=== PATIENT | female | born 1950 | race Caucasian/White ===

== ENCOUNTER 2016-07-18 14:42 | Inpatient (IN) | payer OTHER ==
[~2016-07-18] VITALS: Ht 170.2 cm; Wt 76.2 kg
--- NOTE | 2016-07-18 15:29 | NUR ---
PT KENNEDY FROM HOME FOR VOMITING STATES SHE FELT GAS AND IN ABOUT 1.5 HOURS SHE BEGAN GETTING PAIN IN [facility] WHILE DRIVING. PT STATES SHE STOPPED AT HER BROTHERS HOUSE AND USED THE BATHROOM. PT TOOK ONE TUMS AND THEN SHE BEGAN VOMITING FOR ABOUT 1/2 HOUR. PT DENIES SOB OR CHEST PAIN. PT HAS A TRIPLE A THAT IS MONITORED EVERY 6 MONTHS THAT HAS NOT CHANGED IN YEARS. PT STATES SHE IS FEELING DIZZY. PT LAST BM WAS THIS AM
--- NOTE | 2016-07-18 15:29 | NUR ---
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
[2016-07-18 15:44] LABS: ABSOLUTE BASOPHIL COUNT 0.1 /CUMM (0.0-0.2); ABSOLUTE EOSINOPHIL COUNT 0.1 /CUMM (0.0-0.7); ABSOLUTE GRANULOCYTE CT 18.5 /CUMM (1.4-6.5); ABSOLUTE LYMPH COUNT 1.4 /CUMM (1.2-3.4); ABSOLUTE MONOCYTE COUNT 0.6 /CUMM (0.10-0.60); BASOPHIL % 0.5 % (0.0-2.0); EOSINOPHIL % 0.3 % (0-5); HEMATOCRIT 38.6 % (37-47); MEAN CORPUSCULAR HGB CONC 33.7 G/DL (33.0-37.0); MEAN CORPUSCULAR VOLUME 89.1 FL (81.0-99.0); MEAN PLATELET VOLUME 7.9 FL (7.4-10.4); PLATELET COUNT 259 /CUMM (130-400); RBC DISTRIBUTION WIDTH 13.3 % (11.5-14.5); RED BLOOD CELL CT 4.33 /CUMM (4.20-5.40); WHITE BLOOD CELL COUNT 20.6 /CUMM (4.8-10.8)
[2016-07-18 15:45] LABS: GRANULOCYTE % 89.7 % (42.2-75.2)
--- NOTE | 2016-07-18 15:50 | NUR ---
PT MEDICATED WITH ANTIVERT FOR DIZZINESS
--- NOTE | 2016-07-18 15:50 | NUR ---
BLOOD DRAWN AND SENT FROM TRIAGE FLUIDS INFUSING DIRECTED
--- NOTE | 2016-07-18 16:28 | ED GI/GU/ABDOMINAL COMPLAINT ---
History of Present Illness General Chief Complaint: Abdominal Pain/Flank Pain Stated Complaint: ABD PAIN/VOMITING Source: patient Exam Limitations: no limitations Vital Signs & Intake/Output Vital Signs & Intake/Output Vital Signs Date Time Temp Pulse Resp B/P Pulse O2 O2 Flow FiO2 Ox Delivery Rate 07/20 1125 80 120/78 07/20 0927 78 120/78 07/20 0630 97.9 61 18 126/70 96 Room Air 07/19 2157 98.1 77 20 112/72 97 Room Air 07/19 1418 98.1 82 20 118/60 96 Room Air ED Intake and Output 07/20 0000 07/19 1200 Intake Total 1300 625 Output Total Balance 1300 625 Intake, IV 625 Intake, Oral 1300 Number 1 Bowel Movements Patient 168 lb Weight Allergies Coded Allergies: NSAIDS (Non-Steroidal Anti-Inflamma (Severe, 07/19/16) Triage Note: PT BIBA FROM HOME FOR VOMITING STATES SHE FELT GAS AND IN ABOUT 1.5 HOURS SHE BEGAN GETTING PAIN IN [facility] WHILE DRIVING. PT STATES SHE STOPPED AT HER BROTHERS HOUSE AND USED THE BATHROOM. PT TOOK ONE TUMS AND THEN SHE BEGAN VOMITING FOR ABOUT 1/2 HOUR. PT DENIES SOB OR CHEST PAIN. PT HAS A TRIPLE A THAT IS MONITORED EVERY 6 MONTHS THAT HAS NOT CHANGED IN YEARS. PT STATES SHE IS FEELING DIZZY. Triage Nurses Notes Reviewed? yes ? n Is pt currently ? No Onset: Abrupt Duration: hour(s):, better, continues in ED Timing: recent history Quality/Severity: moderate, sharpness, severe Location: generalized abdomen Radiation: no radiation No Modifying Factors: none HPI: 65-year-old female comes into emergency room with complaints of nausea vomiting dizziness and abdominal pain. Patient reports that she is a meal this afternoon and about an hour and a half after she got associated nausea. She was having some gas pain. Patient reports she was walking around and then took a emma and then vomited. After vomiting patient became very dizzy with mild associated headache. Denies any chest pain or shortness of breath. (GUNNER LACEY) Reconcile Medications Albuterol Sulfate (Proair Hfa) 90 MCG HFA.AER.AD 1 PUF INH Q4-6 PRN PRN ASTHMA (Reported) Cholecalciferol (Vitamin D3) (Vitamin D) 1,000 UNIT TABLET 1 TAB PO BID SUPPLEMENT (Reported) Cyanocobalamin (Vitamin B-12) 1,000 MCG TABLET 1 TAB PO DAILY SUPPLEMENT ( Reported) Furosemide (Lasix) 20 MG TABLET 1 TAB PO QAM BP (Reported) Imatinib Mesylate (Gleevec) 100 MG TABLET 1 TAB PO BID CHEMO (Reported) Irbesartan (Avapro) 150 MG TABLET 1 TAB PO DAILY BP (Reported) Levothyroxine Sodium (Synthroid) 150 MCG TABLET 1 TAB PO DAILY AC THYROID ( Reported) Meclizine HCl 25 MG TABLET 25 MG PO TIDPRN PRN DIZZINESS Mometasone Furoate (Asmanex) 220 MCG (14 DOSES) AER.POW.BA 1 PUFF INH BID ASTHMA (Reported) Multivitamin (Multi-Day Vitamins) 1 EACH TABLET 1 TAB PO DAILY SUPPLEMENT ( Reported) Nifedipine (Nifedical XL) 30 MG TAB.ER.24 1 TAB PO QAM BP (Reported) Ondansetron HCl (Zofran) 4 MG TABLET 1 TAB PO Q6-8P NAUSEA/VOMITING Rosuvastatin Calcium (Crestor) 20 MG TABLET 1 TAB PO DAILY CHOLESTEROL ( Reported) Sennosides/Docusate Sodium (Senna Plus Tablet) 8.6 MG-50 MG TABLET 1 TAB PO BID PRN CONSTIPATION Triamterene (Dyrenium) 50 MG CAPSULE 1 CAP PO QAM BP (Reported) (MONICA VALENTINE,JEAN PIERRE) Past History Travel History Traveled to [place] past 21 day No Medical History Any Pertinent Medical History? see below for history Cardiovascular: hypertension, hyperlipidemia Respiratory: asthma Endocrine: Tani's thyroiditis, MEDABOLIC SYNDROME Cancer(s): ABD TUMOR Surgical History Surgical History: non-contributory Psychosocial History What is your primary language P[place] Tobacco Use: Never used ETOH Use: occasional use Illicit Drug Use: denies illicit drug use Family History Hx Contributory? No (GUNNER LACEY) Review of Systems Review of Systems Constitutional: Reports: no symptoms. EENTM: Reports: no symptoms. Respiratory: Reports: see HPI. Cardiovascular: Reports: no symptoms. GI: Reports: see HPI. Genitourinary: Reports: no symptoms. Musculoskeletal: Reports: no symptoms. Skin: Reports: no symptoms. Neurological/Psychological: Reports: no symptoms. Hematologic/Endocrine: Reports: no symptoms. Immunologic/Allergic: Reports: no symptoms. All Other Systems: Reviewed and Negative (GUNNER LACEY) Physical Exam Physical Exam General Appearance: well developed/nourished, alert, mild distress Head: atraumatic, normal appearance Eyes: Bilateral: normal appearance, EOMI. Ears, Nose, Throat, Mouth: hearing grossly normal, moist mucous membrane Neck: normal inspection, full range of motion Respiratory: normal breath sounds, no respiratory distress Cardiovascular: regular rate/rhythm Gastrointestinal: soft, tenderness Extremities: normal range of motion Neurologic/Psych: awake, alert, oriented x 3 Skin: intact, normal color Core Measures ACS in differential dx? No Severe Sepsis Present: No Septic Shock Present: No (GUNNER LACEY) Progress Differential Diagnosis: AAA, AMI, appendicitis, biliary colic, bowel obstruction , cholecystitis, diverticulitis, gastritis, hepatitis, hernia, hemorrhoids, ischemic bowel, inflamm bowel dis, intrauterine , kidney stone, Ebony -Davi tear, ovarian cyst, ovarian torsion, pancreatitis, PID/cervicitis, peptic ulcer, PUD/GERD, perforated viscous, SBO, threatened AB, UTI/pyelo Plan of Care: Orders Procedure Date/time Status MISTAKE 07/20 1003 Active PT Evaluate & Treat 07/20 0801 Active Discharge Patient 07/20 UNK Active MISTAKE 07/20 UNK Complete MISTAKE 07/19 1323 Active PT EVAL LOW COMPLEX 20 MIN 07/19 UNK Complete Neuromuscular Re-ed 07/19 UNK Complete Gait Training 07/19 UNK Complete Anticipated Discharge 07/19 UNK Active Current Medications Sig/Sophia Start time Last Medication Dose Stop Time Status Admin Losartan Potassium 50 MG DAILY 07/20 1000 AC (Cozaar) Enoxaparin Sodium 40 MG DAILY 07/19 1000 AC (Lovenox) Fluticasone 1 PUF BID 07/19 1000 AC Propionate (Flovent) Albuterol Sulfate 1 PUF Q4-6 PRN PRN 07/19 0415 AC (Ventolin) Meclizine HCl 25 MG TIDPRN PRN 07/19 0215 AC (Antivert) Acetaminophen 650 MG Q6P PRN 07/19 0115 AC (Tylenol) Ondansetron HCl 4 MG Q8P PRN 07/19 0115 AC (Zofran) Laboratory Tests 07/20/16 0635: CBC w Diff NO MAN DIFF REQ, RBC 4.15 L, MCV 88.9, MCH 30.0, RDW 13.1, MPV 8.3, Gran % 60.3, Lymphocytes % 23.9, Monocytes % 6.2, Eosinophils % 8.8 H, Basophils % 0.8, Absolute Granulocytes 4.0, Absolute Lymphocytes 1.6, Absolute Monocytes 0.4, Absolute Eosinophils 0.6, Absolute Basophils 0.1, PUBS MCHC 33.7 07/19/16 1655: CBC w Diff NO MAN DIFF REQ, RBC 3.46 L, MCV 88.8, MCH 29.5, RDW 13.4, MPV 8.0, Gran % 60.0, Lymphocytes % 25.9, Monocytes % 8.1, Eosinophils % 5.3 H, Basophils % 0.7, Absolute Granulocytes 4.1, Absolute Lymphocytes 1.8, Absolute Monocytes 0.6, Absolute Eosinophils 0.4, Absolute Basophils 0, PUBS MCHC 33.2 Diagnostic Imaging: Viewed by Me: CT Scan. Discussed w/RAD: CT Scan. Radiology Impression: SERVICE DATE: 07/18/16152 EXAM TYPE: CAT - CT ABD & PELVIS W/O IV CONTRAS EXAMINATION: CT ABDOMEN AND PELVIS WITHOUT CONTRAST CLINICAL INFORMATION: Dominant pain and vomiting. History of abdominal mass. On chemotherapy. COMPARISON: None. TECHNIQUE: Multidetector volumetric imaging was performed from the superior aspect of the liver through the pubic symphysis. Sagittal and coronal reformatted images were obtained on the technologist's workstation. DLP: 394.66 mGy-cm. FINDINGS: LUNG BASES: Nodular density right middle lobe measuring approximately 0.5 cm (series 2 image 1) Large lobulated heterogeneous low-attenuation mass appears to be arising out of the pelvis measuring approximately 25 x 18 x 20 cm in the transverse, AP and craniocaudal diameters. Mass demonstrates areas of low attenuation as well as higher than simple fluid as well as soft tissue attenuation. Free fluid also identified in the perihepatic/perisplenic regions as well as mid abdomen/pelvis. LIVER, GALLBLADDER, AND BILIARY TREE: Evaluate for leak identified noncontrast liver is mildly distended gallbladder possibly sludge. There is no gross biliary ductal dilatation. PANCREAS: Evaluation is limited without intravenous contrast. No gross abnormality. SPLEEN: Unremarkable ADRENAL GLANDS: Within normal limits KIDNEYS AND URETERS: No evidence of stones. No gross abnormality on the noncontrast images. BLADDER: Limited evaluation. GASTROINTESTINAL TRACT: Small hiatal hernia Limited evaluation of the abdomen and pelvis due to the presence of the mass. ABDOMINAL WALL: No significant hernia is appreciated. LYMPH NODES: No gross lymphadenopathy in the visualized regions. Evaluation is limited in the presence of mass. VASCULAR: Atherosclerotic disease. Atherosclerotic disease. PELVIC VISCERA: Very poor and limited evaluation. Large mass arising out of the pelvis raises the possibility of ovarian carcinoma. Clinical correlation is recommended. OSSEOUS STRUCTURES: No acute osseous abnormality. Scoliosis of the lumbar spine with rate 1 anterolisthesis L4-L5 level. Nonspecific sclerotic lesion noted in the left pubic ramus (series 602 image 45). Metastatic disease cannot be entirely excluded.. Status post left hip arthroplasty. IMPRESSION: 1. Large heterogeneous low-attenuation mass arising out of the pelvis measuring 25 x 18 x 20 cm. In comparison to earlier examinations is recommended. Differential possibility includes ovarian neoplasm. 2. Free fluid. 3. small amount of gallbladder sludge. No evidence of acute cholecystitis. 4. Small 0.5 cm nodule right middle lobe. Additional pulmonary nodules cannot be excluded. Follow-up CT chest recommended. 5. Sclerotic lesion left pubic bone. This may represent benign etiology. Metastatic disease cannot be entirely excluded. DICTATED BY: BECCA AMADOR MD DATE/TIME DICTATED:07/18/161724 LOOM INSPECTOR:DWIGHT DATE/TIME TRANSCRIBED:07/18/161724 CONFIDENTIAL, DO NOT COPY WITHOUT APPROPRIATE AUTHORIZATION. Initial ED EKG: sinus arrhythmia, rate 61, normal P waves, normal QRS is (GUNNER LACEY) Departure Departure Disposition: STILL A PATIENT Condition: Stable Clinical Impression Primary Impression: Abdominal pain Secondary Impressions: Leukocytosis, Vertigo Referrals: AMANUEL VALENTINE,JOVAN Baig (PCP/Family) Departure Forms: Customer Survey General Discharge Information (GUNNER LACEY) Departure Prescriptions: Current Visit Scripts Sennosides/Docusate Sodium (Senna Plus Tablet) 1 TAB PO BID PRN CONSTIPATION 30 Days Meclizine HCl 25 MG PO TIDPRN PRN DIZZINESS 10 Days Ondansetron HCl (Zofran) 1 TAB PO Q6-8P #15 TAB PA/BRAZING FURNACE OPERATOR Co-Sign Statement Statement: ED Attending supervision documentation- [X] I saw and evaluated the patient. I have also reviewed all the pertinent lab results and diagnostic results. I agree with the findings and the plan of care as documented in the PA's/BRAZING FURNACE OPERATOR's documentation. [X] I have reviewed the ED Record and agree with the PA's/BRAZING FURNACE OPERATOR's documentation. [] Additions or exceptions (if any) to the PAs/BRAZING FURNACE OPERATOR's note and plan are summarized below: [] (MONICA VALENTINE,JEAN PIERRE) Admission Note Spoke With: RICCI SALAS MD Documentation of Exam: Documentation of any treatments & extenuating circumstances including Concerns Regarding Discharge (functional status, medication knowledge or non-compliance, living conditions, etc.) that warrant an admission rather than observation: [ Persistent vertigo and elevated white blood cell count of 20,000. Persistent abdominal pain. Patient will require neurology consult as well as a surgical consult. Follow-up cultures.] Observation Note Rationale for Observation: My rational for observation is as follows . (CHAYO VALENTINE,ELOISA Baig) ED Attending Observation Initial Observation Note: I have seen and personally examined CALEB NOLASCO on 07/18/16 at 2012. I agree with the current emergency department documentation. The disposition (admission or discharge) is uncertain at this time, she needs a period of observation for the following reason(s): [PERISTENT VERTIGO, LEUKOCYTOSIS, ABD PAIN] The ED Nurse caring for this patient has been personally informed as to what the patient is being observed for. Observation Re-Evaluation: I have reevaluated CALEB NOLASCO on 07/18/16 at 2311. The physical findings that support the continued need to observe this patient include [patient is still having abdominal pain and persistent vertigo feelings. Patient white count is elevated 20,000. At this point the patient will be admitted to the medical service and obtain a surgical consultation.]. Observation Discharge: I have reevaluated CALEB NOLASCO on 07/18/16 at 2312. The patient is: (): Stable for discharge ([X]): To be admitted to Nursing Floor (): To be placed in Observation on Nursing Floor (): For transfer to other facility The patient was being observed for [persistent vertigo and abdominal pain] As a result of that observation, I have determined [ADMIT]. (CHAYO VALENTINE,ELOISA Baig) Sennosides/Docusate Sodium (Senna Plus Tablet) 1 TAB PO BID PRN CONSTIPATION 30 Days Meclizine HCl 25 MG PO TIDPRN PRN DIZZINESS 10 Days Ondansetron HCl (Zofran) 1 TAB PO Q6-8P #15 TAB (GUNNER LACEY) PA/BRAZING FURNACE OPERATOR Co-Sign Statement Statement: ED Attending supervision documentation- [X] I saw and evaluated the patient. I have also reviewed all the pertinent lab results and diagnostic results. I agree with the findings and the plan of care as documented in the PA's/BRAZING FURNACE OPERATOR's documentation. [X] I have reviewed the ED Record and agree with the PA's/BRAZING FURNACE OPERATOR's documentation. [] Additions or exceptions (if any) to the PAs/BRAZING FURNACE OPERATOR's note and plan are summarized below: [] (MONICA VALENTINE,JEAN PIERRE) Admission Note Spoke With: RICCI SALAS MD Documentation of Exam: Documentation of any treatments & extenuating circumstances including Concerns Regarding Discharge (functional status, medication knowledge or non-compliance, living conditions, etc.) that warrant an admission rather than observation: [ Persistent vertigo and elevated white blood cell count of 20,000. Persistent abdominal pain. Patient will require neurology consult as well as a surgical consult. Follow-up cultures.] Observation Note Rationale for Observation: My rational for observation is as follows . (CHAYO VALENTINE,ELOISA Baig) ED Attending Observation Initial Observation Note: I have seen and personally examined CALEB NOLASCO on 07/18/16 at 2012. I agree with the current emergency department documentation. The disposition (admission or discharge) is uncertain at this time, she needs a period of observation for the following reason(s): [PERISTENT VERTIGO, LEUKOCYTOSIS, ABD PAIN] The ED Nurse caring for this patient has been personally informed as to what the patient is being observed for. Observation Re-Evaluation: I have reevaluated CALEB NOLASCO on 07/18/16 at 2311. The physical findings that support the continued need to observe this patient include [patient is still having abdominal pain and persistent vertigo feelings. Patient white count is elevated 20,000. At this point the patient will be admitted to the medical service and obtain a surgical consultation.]. Observation Discharge: I have reevaluated CALEB NOLASCO on 07/18/16 at 2312. The patient is: (): Stable for discharge ([X]): To be admitted to Nursing Floor (): To be placed in Observation on Nursing Floor (): For transfer to other facility The patient was being observed for [persistent vertigo and abdominal pain] As a result of that observation, I have determined [ADMIT]. (CHAYO VALENTINE,ELOISA Baig) As a result of that observation, I have determined [ADMIT]. (ELOISA DOMINGO MD)
--- NOTE | 2016-07-18 16:32 | NUR ---
PT TO ROOM10 BY STRETCHER, NURSING CARE ASSUMED, AWAITING CAT SCAN.
[2016-07-18] MEDS ORDERED: CRESTOR20 M2 PO (16:51)
[2016-07-18] MEDS ORDERED: GLEEVEC PO (16:52)
[2016-07-18] MEDS ORDERED: ASMANEX220 MC1 INH (16:53)
[2016-07-18] MEDS ORDERED: SYNTHROID150 MCG PO (16:55)
[2016-07-18] MEDS ORDERED: PROAIR HFA8.5 GM INH (16:55)
[2016-07-18] MEDS ORDERED: NIFEDIPINE ER30 M1 PO (16:56)
[2016-07-18] MEDS ORDERED: NIFEDICAL XL30 M1 PO (16:56)
[2016-07-18] MEDS ORDERED: DYRENIUM50 MG PO (16:57)
[2016-07-18] MEDS ORDERED: AVAPRO150 M1 PO (16:57)
[2016-07-18] MEDS ORDERED: LASIX20 M1 PO (16:58)
[2016-07-18] MEDS ORDERED: MULTI-DAY VITA1 EACH PO (16:58)
[2016-07-18] MEDS ORDERED: CALCIUM +D & M1 EACH PO (16:58)
[2016-07-18] MEDS ORDERED: VITAMIN B-121000 MC3 PO (16:59)
[2016-07-18] MEDS ORDERED: VITAMIN D1000 UNIT PO (16:59)
--- NOTE | 2016-07-18 17:10 | NUR ---
[facility] AND [facility], AWAITING RESULTS.
--- NOTE | 2016-07-18 17:53 | CT SCAN REPORT ---
EXAMINATION: CT ABDOMEN AND PELVIS WITHOUT CONTRAST CLINICAL INFORMATION: Dominant pain and vomiting. History of abdominal mass. On chemotherapy. COMPARISON: None. TECHNIQUE: Multidetector volumetric imaging was performed from the superior aspect of the liver through the pubic symphysis. Sagittal and coronal reformatted images were obtained on the technologist's workstation. DLP: 394.66 mGy-cm. FINDINGS: LUNG BASES: Nodular density right middle lobe measuring approximately 0.5 cm (series 2 image 1) Large lobulated heterogeneous low-attenuation mass appears to be arising out of the pelvis measuring approximately 25 x 18 x 20 cm in the transverse, AP and craniocaudal diameters. Mass demonstrates areas of low attenuation as well as higher than simple fluid as well as soft tissue attenuation. Free fluid also identified in the perihepatic/perisplenic regions as well as mid abdomen/pelvis. LIVER, GALLBLADDER, AND BILIARY TREE: Evaluate for leak identified noncontrast liver is mildly distended gallbladder possibly sludge. There is no gross biliary ductal dilatation. PANCREAS: Evaluation is limited without intravenous contrast. No gross abnormality. SPLEEN: Unremarkable ADRENAL GLANDS: Within normal limits KIDNEYS AND URETERS: No evidence of stones. No gross abnormality on the noncontrast images. BLADDER: Limited evaluation. GASTROINTESTINAL TRACT: Small hiatal hernia Limited evaluation of the abdomen and pelvis due to the presence of the mass. ABDOMINAL WALL: No significant hernia is appreciated. LYMPH NODES: No gross lymphadenopathy in the visualized regions. Evaluation is limited in the presence of mass. VASCULAR: Atherosclerotic disease. Atherosclerotic disease. PELVIC VISCERA: Very poor and limited evaluation. Large mass arising out of the pelvis raises the possibility of ovarian carcinoma. Clinical correlation is recommended. OSSEOUS STRUCTURES: No acute osseous abnormality. Scoliosis of the lumbar spine with rate 1 anterolisthesis L4-L5 level. Nonspecific sclerotic lesion noted in the left pubic ramus (series 602 image 45). Metastatic disease cannot be entirely excluded.. Status post left hip arthroplasty. IMPRESSION: 1. Large heterogeneous low-attenuation mass arising out of the pelvis measuring 25 x 18 x 20 cm. In comparison to earlier examinations is recommended. Differential possibility includes ovarian neoplasm. 2. Free fluid. 3. small amount of gallbladder sludge. No evidence of acute cholecystitis. 4. Small 0.5 cm nodule right middle lobe. Additional pulmonary nodules cannot be excluded. Follow-up CT chest recommended. 5. Sclerotic lesion left pubic bone. This may represent benign etiology. Metastatic disease cannot be entirely excluded.
--- NOTE | 2016-07-18 17:57 | NUR ---
PT MEDICATED WITH VALIUM, 3 MG, IV PER EMAR. SHE IS RESTING COMFORTABLY, WITH FAMILY AT BEDSIDE AT THIS TIME. WILL CONTINUE TO MONITOR.
--- NOTE | 2016-07-18 18:46 | NUR ---
WILLIAM ANDERSON AND FARHANA MARTINO TO BEDSIDE TO DISCUSS TEST RESULTS AND POC.
--- NOTE | 2016-07-18 20:24 | NUR ---
PT TRANSPORTED TO RADIOLOGY AT THIS TIME.
--- NOTE | 2016-07-18 20:36 | RADIOLOGY REPORT ---
EXAMINATION: XR CHEST CLINICAL INFORMATION: Elevated WBC. COMPARISON: None. TECHNIQUE: PA and lateral views of the chest were obtained. FINDINGS: No significant abnormality is noted involving the heart, lungs, mediastinum, bony thorax, or soft tissues. IMPRESSION: Unremarkable examination.
--- NOTE | 2016-07-18 22:35 | CT SCAN REPORT ---
EXAMINATION: CT HEAD WITHOUT AND WITH CONTRAST CLINICAL INFORMATION: Concerning for metastatic disease. Mass in pelvis. Vertigo. COMPARISON: None. TECHNIQUE: Contiguous axial imaging was performed from the skull base to vertex before and after the administration of 95 mL of Optiray 320 intravenous contrast. DLP: 600.71 mGy-cm. FINDINGS: There is no evidence of acute intracranial hemorrhage or territorial infarction. No abnormal mass effect or midline shift is seen. Ellis to white matter differentiation is well preserved. No extra-axial fluid collections are identified. There is no abnormal enhancement. There is vascular wall calcification of the internal carotid artery vessels at the carotid artery siphon bilaterally. The ventricles are normal in size. There is no abnormal attenuation within the brain parenchyma. The osseous structures and soft tissues are normal. The mastoid air cells and visualized portions of the paranasal sinuses are well aerated. IMPRESSION: No acute intracranial pathology.
--- NOTE | 2016-07-18 22:50 | CT SCAN REPORT ---
EXAMINATION: CT ABDOMEN AND PELVIS WITH CONTRAST CLINICAL INFORMATION: HX OF INVESTIGATOR FRAUD TUMOR, ABD PAIN, R/O OBSTRUCTION Signs Symptoms: PAIN NOT PASSING GAS COMPARISON: CT scan abdomen pelvis 07/18/2016 4:51 PM TECHNIQUE: Multidetector volumetric imaging was performed of the abdomen and pelvis after the IV administration of 95 mL of Optiray 320 intravenous contrast. Oral contrast was given. Sagittal and coronal reformatted images were obtained on the technologist's workstation. DLP: 520.88 mGy-cm. FINDINGS: There is a large lobular mass again seen in the abdomen and pelvis. The mass is arising of the pelvis. Measures approximately 25 x 18 x 20 cm. The mass is solid with enhancing vessels in the mass. Favor a INVESTIGATOR FRAUD etiology since arising from the pelvis The mass displaces bowel loops. Does not cause obstruction of the bowel loops. LUNG BASES: The visualized lung bases are unremarkable. LIVER, GALLBLADDER, AND BILIARY TREE: The liver is normal in size, shape, and attenuation. No focal hepatic lesion or biliary ductal dilatation is present. The gallbladder is unremarkable with no evidence of radiopaque gallstones, gallbladder wall thickening, or obvious pericholecystic inflammatory changes. PANCREAS: Unremarkable. SPLEEN: Unremarkable. ADRENAL GLANDS: Unremarkable. KIDNEYS AND URETERS: The kidneys are normal in size, shape, and attenuation. No hydronephrosis, hydroureter, or calculi seen. No perinephric stranding. BLADDER: Unremarkable. GASTROINTESTINAL TRACT: No bowel obstruction. No dilated bowel loops. Bowel loops are displaced by the large mass in the abdomen and pelvis. No bowel wall thickening or edema. Moderate volume of stool in colon. The appendix is not identified. Small hiatal hernia. MESENTERY: Small volume of abdominal ascites. No inflammation. ABDOMINAL WALL: No significant hernia is appreciated. LYMPH NODES: Normal. VASCULAR: Atherosclerotic vascular wall calcifications of aorta and iliac arteries without aneurysm. PELVIC VISCERA: Large mass emanating from the pelvis superior to the bladder. 2 surgical clip seen in the left side of the pelvis. Correlate with surgical history. OSSEOUS STRUCTURES: Orthopedic hardware in the left hip, total hip replacement, this causes streak artifact to the lower pelvis. There is a levoscoliosis of lumbar spine. Sclerotic lesion in left superior pubic ramus measuring 7 mm. No cortical bone destruction or soft tissue mass. IMPRESSION: 1. Large mass in abdomen pelvis does displace bowel loops but does not cause obstruction. Favor INVESTIGATOR FRAUD origin. 2 surgical clips in the left side of pelvis. Correlate with surgical history. 2. Moderate volume of stool in colon. No bowel obstruction. 3. Small volume of abdominal ascites present.
--- NOTE | 2016-07-18 23:59 | History & Physical ---
YOUNG COLVIN MD 07/18/16 2391: General Information and HPI MD Statement: I have seen and personally examined CALEB NOLASCO and documented this H&P. The patient is a 65 year old F who presented with a patient stated chief complaint of [abdominal pain,vertigo,vomiting]. 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 Pt was in her normal state of healthy until noon today. For breakfast, she had coffee, along with home-made nigerien waffle (made with batter from the night before, refrigerated), and nutella. She was driving when she started having 11/ 10 sharp RLQ pain. She went to her brother's house in [place] (pt lives in [place]) because she thought bowel movement would help relieve her pain. She was not able to pass flatus or have a bowel movement, instead, was burping for 30 minutes. She took tums and vomited dark brown vomitus and had dry heaves for about 20 minutes. She then started to experience the room spinning around her. Her [id number] was there to make sure that she was safe and did not fall. She called ambulance and she was brought to the ED for further evaluation. She vomited again in the ambulance. Pt had a normal BM this morning. She has not been able to pass flatus since her abdominal pain started. No one ate the nigerien waffle other than herself. ROS: she feels warm, and has chills all day, her neck is sore because she has been keeping her head down, but no stiffness, and ROM intact. She reports sick contacts at work. Denies tinnitus, loss of hearing, recent URI or nasal congestion. Of note, pt had GIST diagnosed in 1997, was removed, and has been monitored with imaging every 6 months until 2008 or 2009. In spring 2015, she was having diaphoresis with 15 lbs unintentional weight loss. 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 She was started on gleevec 400 daily in March. However, she was having severe lower extremity edema along with heartburn, the gleevec was discontinued for 3 weeks after she was on it for 5-6 weeks. On Jun 23, she was restarted on imatinib (generic) on 200 mg daily. She follows up with Dr. Fuad Dawn in [place] every 2 weeks for CBC (last one checked Jul 05). Since she was started on gleevec, she has lost about 40 lbs, and has gone down 2 pant sizes. She was given meclizine in the ED. During our evaluation, her vertigo has improved although she still reports symptoms when she makes sudden head movements. When we evaluated her, she no longer complains of RLQ pain, instead, she is now complaining of LLQ discomfort, rated as 3 or 4 / 10. Allergies/Medications Allergies: Coded Allergies: NSAIDS (Non-Steroidal Anti-Inflamma (Severe, 07/19/16) Home Med list Albuterol Sulfate (Proair Hfa) 90 MCG HFA.AER.AD 1 PUF INH Q4-6 PRN PRN ASTHMA (Reported) Cholecalciferol (Vitamin D3) (Vitamin D) 1,000 UNIT TABLET 1 TAB PO BID SUPPLEMENT (Reported) Cyanocobalamin (Vitamin B-12) 1,000 MCG TABLET 1 TAB PO DAILY SUPPLEMENT ( Reported) Furosemide (Lasix) 20 MG TABLET 1 TAB PO QAM BP (Reported) Imatinib Mesylate (Gleevec) 100 MG TABLET 1 TAB PO BID CHEMO (Reported) Irbesartan (Avapro) 150 MG TABLET 1 TAB PO DAILY BP (Reported) Levothyroxine Sodium (Synthroid) 150 MCG TABLET 1 TAB PO DAILY AC THYROID ( Reported) Mometasone Furoate (Asmanex) 220 MCG (14 DOSES) AER.POW.BA 1 PUFF INH BID ASTHMA (Reported) Multivitamin (Multi-Day Vitamins) 1 EACH TABLET 1 TAB PO DAILY SUPPLEMENT ( Reported) Nifedipine (Nifedical XL) 30 MG TAB.ER.24 1 TAB PO QAM BP (Reported) Rosuvastatin Calcium (Crestor) 20 MG TABLET 1 TAB PO DAILY CHOLESTEROL ( Reported) Triamterene (Dyrenium) 50 MG CAPSULE 1 CAP PO QAM BP (Reported) Past History Travel History Traveled to [place] past 21 day No Medical History Cardiovascular: hypertension, hyperlipidemia, metabolic syndrome Respiratory: asthma Endocrine: Tani's thyroiditis, MEDABOLIC SYNDROME Cancer(s): ABD GIST TUMOR Surgical History Surgical History: hip replacement, supracervical hysterectomy Past Family/Social History Family History Relations & Conditions if any Relation not specified for: *No pertinent family history Psychosocial History Where do you live? Home Services at Home: None Smoking Status: Never Smoked ETOH Use: occasional use Illicit Drug Use: denies illicit drug use Functional Ability ADLs Independent: dressing, eating, toileting, bathing. Ambulation: independent IADLs Independent: shopping, housework, finances, food prep, telephone, transportation , medication admin. Review of Systems Review of Systems Constitutional: Reports: chills, fever. EENTM: Reports: see HPI. Cardiovascular: Denies: chest pain, palpitations. Respiratory: Denies: cough, short of breath. GI: Reports: see HPI, abdominal pain, bloating, nausea, vomiting. Genitourinary: Denies: dysuria. Exam & Diagnostic Data Last 24 Hrs of Vital Signs/I&O Vital Signs Date Time Temp Pulse Resp B/P Pulse O2 O2 Flow FiO2 Ox Delivery Rate 07/19 0243 98.0 72 20 120/70 97 Room Air 07/18 2211 98.2 74 16 128/60 98 Room Air 07/18 1935 97.8 75 16 112/68 96 Room Air 07/18 1742 96.3 72 18 119/60 99 Room Air 07/18 1632 Room Air 07/18 1529 97.7 75 18 102/64 99 Room Air Intake & Output 07/19 0800 07/19 0000 07/18 1600 Intake Total 1000 Output Total Balance 1000 Intake, IV 1000 Patient 77.111 kg Weight Physical Exam General Appearance Alert, Oriented X3, Cooperative, No Acute Distress Skin No Significant Lesion HEENT Atraumatic, PERRLA, EOMI, Mucous Membr. moist/pink Neck Supple, +2 Carotid Pulse wo Bruit, No LAD Cardiovascular Regular Rate, Normal S1, Normal S2, No Murmurs, Gallops, Rubs Lungs Clear to Auscultation, Normal Air Movement Abdomen Normal Bowel Sounds, Soft, tender over left lower quadrant and right lower quadrant Neurological Normal Speech, horizontal nystagmus, more severe towards the left Extremities trace edema, has chronic venous insufficiency Vascular Normal Pulses Last 24 Hrs of Labs/Osbaldo: Laboratory Tests 07/19/16 0143: Urine Color YEL, Urine Clarity CLEAR, Urine pH 6.5, Ur Specific [place] 1.015, Urine Protein NEG, Urine Ketones NEG, Urine Nitrite NEG, Urine Bilirubin NEG, Urine Urobilinogen 0.2, Ur Leukocyte Esterase NEG, Ur Microscopic EXAM NOT REQUIRED, Urine Hemoglobin NEG, Urine Glucose NEG 07/18/16 1536: Anion Gap 15, Estimated GFR > 60, BUN/Creatinine Ratio 42.9 H, Glucose 159 H, Calcium 9.8, Magnesium 1.6, Total Bilirubin 0.8, AST 19, ALT 16, Alkaline Phosphatase 66, Troponin I < 0.01, Total Protein 7.8, Albumin 4.4, Globulin 3.4, Albumin/Globulin Ratio 1.3, CBC w Diff MAN DIFF ORDERED, RBC 4.33, MCV 89.1, MCH 30.0, RDW 13.3, MPV 7.9, Gran % 89.7 H, Lymphocytes % 6.6 L, Monocytes % 2.9, Eosinophils % 0.3, Basophils % 0.5, Absolute Granulocytes 18.5 H, Segmented Neutrophils 90 H, Band Neutrophils 1, Absolute Lymphocytes 1.4, Lymphocytes 6 L, Monocytes 2, Absolute Monocytes 0.6, Absolute Eosinophils 0.1, Basophils 1, Absolute Basophils 0.1, Platelet Estimate VERIFIED BY SMEAR, Normocytic RBCs VERIFIED, Normochromic RBCs VERIFIED, PUBS MCHC 33.7, Fld Total RBCs Counted 100 Microbiology 07/19 0140 BLOOD: Blood Culture - RECD 07/19 0121 BLOOD: Blood Culture - RECD Diagnostic Data EKG Results SR 61 CXR Results IMPRESSION: Unremarkable examination. Other Results Head CT IMPRESSION: No acute intracranial pathology. CT abd/pelvis with IV contrast IMPRESSION: 1. Large mass in abdomen pelvis does displace bowel loops but does not cause obstruction. 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 2 surgical clips in the left side of pelvis. Correlate with surgical history. 2. Moderate volume of stool in colon. No bowel obstruction. 3. Small volume of abdominal ascites present. CT abd/pelvis wo IV contrast impression: 1. Large heterogeneous low-attenuation mass arising out of the pelvis measuring 25 x 18 x 20 cm. In comparison to earlier examinations is recommended. Differential possibility includes ovarian neoplasm. 2. Free fluid. 3. small amount of gallbladder sludge. No evidence of acute cholecystitis. 4. Small 0.5 cm nodule right middle lobe. Additional pulmonary nodules cannot be excluded. Follow-up CT chest recommended. 5. Sclerotic lesion left pubic bone. This may represent benign etiology. Metastatic disease cannot be entirely excluded. 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 Pt admitted to with the following problems addressed: # Abdominal pain,nausea, vomiting, unknown etilogy, hx of GIST, could be gastroenteritis vs obstruction - WBC 20.6 * Heme/onc consult in am () * zofran 4 mg q8p * Mag ox 400 daily * Follow BC X 2 * continue Imatinib 100 bid # Vertigo, most likely BPPV, horizontal nystagmus * Continue meclizine 25 mg TID prn # Hypokalemia - K 3.4 * 1 time kdur # Metabolic syndrome * Accucheck, consider novolog ss * continue Atorvastatin 80 mg daily * continue Nifedipine 30 mg qam # Hypothyroidism * Continue levothyroxine 150 mcg # Continue home meds * Vit B12 * Mometasone * Albuterol # Home meds on hold * Lasix 20 mg daily * Irbesartan 150 mg daily * Triamterene 50 mg qam * Ca+D * Vit D3 Diet: Heart healthy Fluids: D5NS 125ml/hr DVT ppx: mech and pharm (lovenox) FULL CODE As Ranked By This Provider Problem List: 1. Abdominal pain 2. Vertigo Core Measures/Miscellaneous Acute Coronary Syndrome ACS Diagnosis: No Cerebrovascular Accident CVA/TIA Diagnosis: No Congestive Heart Failure CHF Diagnosis: No Venous Thromboembolism VTE Risk Factors: Acute medical illness, Age > 40 VTE Prophylaxis Ordered Inpt: Mech & Pharm No Mech VTE prophylaxis d/t: No contraindications No VTE Pharm Prophylaxis d/t: No contraindications VTE Diagnosis: No VTE Type: NONE VTE Confirmed by (Test): NONE Severe Sepsis Severe Sepsis Present: No Septic Shock Septic Shock Present: No Miscellaneous Documentation Attending Case Discussed With: JOSUE VALENTINE,RICCI Primary Care Physician: JOVAN VITAL MD Patient sees these Specialists Dr Fuad Dawn (GIST) Dr Barnhart (vascular) Level of Patient Care: General Medicine WOLF WOO 07/19/16 0348: Resident Review Statement Resident Statement: examined this patient, discussed with network intern, agreed with network intern, reviewed EMR data (avail), reviewed images, amended to note Other Findings: This is 65-year-old with past medical history of GIST on imatinib, metabolic syndrome, asthma, hypothyroidism, presented to the emergency department via EMS for chief complain of abdominal pain, nausea, vomiting, and vertigo. Patient stated that all the symptoms started today when she was trying to have a bowel movement due to the right lower quadrant abdominal pain, she experienced the bathroom was spinning around her and she feels nauseated and she vomited. She reports 2-3 episodes of vomiting, she stated that she had 1 large bowel movement. She reports that her brother holds her head and that slightly improve her vertigo. She denied any tinnitus, loss of hearing, recent URI or nasal congestion. Physical examination, lab and imaging as above. Problem list: -Leukocytosis that could be due to nausea, vomiting -Vertigo that could be most likely due to benign positional vertigo -Abdominal pain, that could be secondary to nausea and vomiting due to the vertigo, or the underlying GIST tumor. -Hypokalemia, hypomagnesemia secondary to nausea, vomiting -Dehydration was secondary to nausea, vomiting and large bowel movement. Plan: -Admit patient to general medicine floor -Vitals every shift, I and O's -Hold off antibiotic for now -Start the patient on D5 normal saline at 125 mL per hour -Start the patient on meclizine 25MG 3 times a day when necessary for dizziness -Start the patient on IV Zofran for nausea, vomiting -Potassium and magnesium supplement -We'll hold off on medication of Lasix,DYRENIUM will start tomorrow morning. -TRC nebs as needed -We'll continue home medication including imatinib -Oncology consultation, obtain medical records from PCP -Physical therapy consultation -Carbohydrate consistent diet, Accu-Chek every 6 -Pain pathway -DVT prophylaxis: subcutaneous Lovenox -Full code. JOSUE VALENTINE, [facility] 07/19/16 0557: Attending MD Review Statement Attending Statement Attending MD Statement: examined this patient, discuss w/resident/PA/LABORER WHARF, agreed w/resident/PA/LABORER WHARF Attending Assessment/Plan: 65 yo F with h/o GIST (diagnosed 1997 s/p tumor removal, recurrence in 2016 was on Gleevec 400 mg adverse reaction - now on generic Imatinib 200 mg), metabolic syndrome, AAA, chronic venous insufficiency, asthma, hypothyroidism, is here with lower abdominal pain followed by intractable nausea and vomiting after eating home made waffle early this AM. This was followed by vertigo, room spinning sensation worse with head movement. Denies vision changes, headache, recent URI symptoms or hearing loss. She follows Dr. Fuad Dawn (Oncologist). VSS. Abd: b/l lower quadrant tenderness, Neuro exam nonfocal, except for horizontal nystagmus, did not assess gait. Labs: WBC 20.6, K 3.4, BUN 30, trop neg, UA neg, EKG sinus arrhythmia. CXR/Head CT neg. CT abd/pelvis large mass arising out of pelvis ?GIST tumor, no bowel obstruction, small GB sludge, no cholecystitis, RML lung nodule and left pubic bone sclerotic lesion ?mets. 1. Intractable nausea, vomiting - possible gastroenteritis and vertigo ?BPPV/ orthostatic hypotension in this patient with GIST on Imatinib. Check orthostats, initiate clear liquid diet, advance as tolerated, anti-emetics, IV fluids, continue meclizine PRN, PT eval when able, Consult Oncology as patient is on active chemoRx. IF vertigo does not improve, consider Neuro consult. 2. Leukocytosis likely reactive. UA and CXR neg. No obvious skin cellulitic changes. GB sludge, no cholecystitis, LFTs are normal. Consider RUQ ultrasound if LFTs increase. 3. Electrolyte abnormalities in the setting of nausea/vomiting. Replete. Hold lasix, irbesartan, triamterene (dyrenium) and nifedipine for now. Plan to restart nifedipine and slowly add on others. DVT ppx Lovenox. Full code.
--- NOTE | 2016-07-19 01:32 | NUR ---
PT AMBULATED TO BATHROOM FOR URINE SAMPLE
--- NOTE | 2016-07-19 01:44 | NUR ---
PT MEDICATED WITH D5 NS @125MLS/HR PER EMAR
--- NOTE | 2016-07-19 01:44 | NUR ---
CULTURES SENT BY THIS RN
--- NOTE | 2016-07-19 01:45 | NUR ---
URINE TRIO SENT TO LAB BY AGUS KING
--- NOTE | 2016-07-19 01:47 | NUR ---
Emergency Dept [facility] Admit Note: To be admitted to [facility] by DR. SALAS with INTRACTABLE VERTIGO, LEUKOCYTOSIS as the diagnosis, to [id number]. Nursing Boat Painter and admitting notified 07/19/16 at 2030
--- NOTE | 2016-07-19 01:59 | NUR ---
REPORT GIVEN TO AGUS BENDER
[2016-07-19 02:43] VITALS: BP 120/70
--- NOTE | 2016-07-19 05:37 | Admission Certification ---
Admission Certification Certification Statement - As attending physician, I certify that at the time of - admission, based on clinical presentation, severity of - symptoms, need for further diagnostic testing and - therapeutic interventions, and risk of adverse outcomes - without in-hospital treatment, in my clinical assessment, - this patient requires an acute hospital stay for a minimum - of two nights or longer. I have also considered psychsocial - factors such as support system, advanced age, financial - issues, cognitive issues, and failed out-patient treatments, - past re-admission history, safety of patient, and lack of - compliance as applicable. Specific rationale supporting this admission is: Intractable vertigo, nausea and vomiting. Leukocytosis of unclear etiology.
[2016-07-19 06:38] VITALS: BP 116/72
[2016-07-19 08:18] LABS: ABSOLUTE EOSINOPHIL COUNT 0.1 /CUMM (0.0-0.7); ABSOLUTE GRANULOCYTE CT 5.8 /CUMM (1.4-6.5); ABSOLUTE LYMPH COUNT 1.5 /CUMM (1.2-3.4); ABSOLUTE MONOCYTE COUNT 0.7 /CUMM (0.10-0.60); EOSINOPHIL % 0.9 % (0-5)
[2016-07-19 08:30] LABS: ABSOLUTE BASOPHIL COUNT 0 /CUMM (0.0-0.2); BASOPHIL % 0.4 % (0.0-2.0); GRANULOCYTE % 71.8 % (42.2-75.2); MEAN CORPUSCULAR HGB CONC 33.9 G/DL (33.0-37.0); MEAN CORPUSCULAR VOLUME 88.5 FL (81.0-99.0); MEAN PLATELET VOLUME 8.1 FL (7.4-10.4); PLATELET COUNT 184 /CUMM (130-400); RBC DISTRIBUTION WIDTH 13.5 % (11.5-14.5); RED BLOOD CELL CT 3.28 /CUMM (4.20-5.40)
[2016-07-19 08:44] LABS: HEMATOCRIT 29.1 % (37-47); WHITE BLOOD CELL COUNT 8.1 /CUMM (4.8-10.8)
--- NOTE | 2016-07-19 08:45 | PN- Housestaff ---
See Addendum Subjective Follow-up For: Vertigo Dehydration Nausea and vomiting Abdominal pain Subjective: Patient seen and examined at bedside. She reports feeling much better with resolution of nause, vomiting, and vertigo. Patient was very hungry and ate a big portion of breakfast without any issues. She still has mild diffuse abdominal pain (3 out of 10) but much better than yesterday (11 out of 10). No other complaints. She has not had a bowel movement since yest morning. Drank prune juice and took Senna. Review of Systems Constitutional: Reports: see HPI. Objective Last 24 Hrs of Vital Signs/I&O Vital Signs Date Time Temp Pulse Resp B/P Pulse O2 O2 Flow FiO2 Ox Delivery Rate 07/19 1101 Room Air 07/19 1031 80 120/78 07/19 0638 98.1 70 20 116/72 97 Room Air 07/19 0243 98.0 72 20 120/70 97 Room Air 07/18 2211 98.2 74 16 128/60 98 Room Air 07/18 1935 97.8 75 16 112/68 96 Room Air 07/18 1742 96.3 72 18 119/60 99 Room Air 07/18 1632 Room Air 07/18 1529 97.7 75 18 102/64 99 Room Air Intake & Output 07/19 1600 07/19 0800 07/19 0000 Intake Total 625 1000 Output Total Balance 625 1000 Intake, IV 625 1000 Patient 76.204 kg Weight Physical Exam General Appearance: Alert, Oriented X3, Cooperative, No Acute Distress Other Physical Findings: Skin No Significant Lesion HEENT Atraumatic, PERRLA, EOMI, Mucous Membr. moist/pink Neck Supple, +2 Carotid Pulse wo Bruit, No LAD Cardiovascular Regular Rate, Normal S1, Normal S2, No Murmurs, Gallops, Rubs Lungs Clear to Auscultation, Normal Air Movement Abdomen Normal Bowel Sounds, Soft, tender over left lower quadrant and right lower quadrant Neurological Normal Speech, horizontal nystagmus, more severe towards the left Extremities trace edema, has chronic venous insufficiency Vascular Normal Pulses Current Medications: Current Medications Sig/Sophia Start time Last Medication Dose Route Stop Time Status Admin Acetaminophen 650 MG Q6P PRN 07/19 0115 AC PO Albuterol Sulfate 1 PUF Q4-6 PRN PRN 07/19 0415 AC INH Atorvastatin Calcium 80 MG 1700 07/19 1700 AC PO Cyanocobalamin 1,000 MCG DAILY 07/19 1000 AC PO Dextrose/Sodium 1,000 ML Q8H 07/19 0115 DC 07/19 Chloride IV 1038 Diazepam 0 .STK-MED ONE 07/18 1746 DC .ROUTE Diazepam 3 MG ONCE ONE 07/18 1730 DC 07/18 IV 07/18 1731 1756 Enoxaparin Sodium 40 MG DAILY 07/19 1000 AC SC Fluticasone 1 PUF BID 07/19 1000 AC Propionate INH Imatinib Mesylate 200 MG AT BEDTIME 07/19 2200 AC PO Levothyroxine Sodium 0.15 MG DAILY AC 07/19 0700 AC 07/19 PO 0505 Losartan Potassium 50 MG DAILY 07/20 1000 AC PO Losartan Potassium 50 MG DAILY 07/19 1000 CAN PO Magnesium Oxide 400 MG DAILY 07/19 0200 AC 07/19 PO 0505 Meclizine HCl 25 MG TIDPRN PRN 07/19 0215 AC PO Meclizine HCl 25 MG TIDPRN PRN 07/19 0115 DC PO Meclizine HCl 0 .STK-MED ONE 07/18 2347 DC PO Meclizine HCl 25 MG ONCE ONE 07/18 2315 DC 07/18 PO 07/18 2316 2353 Meclizine HCl 0 .STK-MED ONE 07/18 1542 DC PO Meclizine HCl 25 MG ONCE ONE 07/18 1530 DC 07/18 PO 07/18 1531 1549 Nifedipine 30 MG QAM 07/19 1000 AC 07/19 PO 1031 Ondansetron HCl 4 MG Q8P PRN 07/19 0115 AC IV Ondansetron HCl 4 MG ONCE ONE 07/18 1600 DC 07/18 IV 07/18 1601 1549 Ondansetron HCl 0 .STK-MED ONE 07/18 1553 DC .ROUTE Potassium Chloride 40 MEQ ONCE ONE 07/19 0145 DC 07/19 PO 07/19 0146 0505 Senna/Docusate Sodium 1 TAB BID PRN 07/19 0845 AC 07/19 PO 1034 Sodium Chloride 1,000 ML BOLUS ONE 07/18 2315 DC 07/18 IV 07/19 0014 2353 Sodium Chloride 1,000 ML ONCE ONE 07/18 1530 DC 07/18 IV 07/18 2209 1549 Last 24 Hrs of Lab/Osbaldo Results Last 24 Hrs of Labs/Mics: Laboratory Tests 07/19/16 0700: Anion Gap 10, Estimated GFR > 60, BUN/Creatinine Ratio 31.7 H, Magnesium 1.7, TSH 0.332, Free T4 1.39, CBC w Diff NO MAN DIFF REQ, RBC 3.28 L, MCV 88.5, MCH 30.0, RDW 13.5, MPV 8.1, Gran % 71.8, Lymphocytes % 18.8 L, Monocytes % 8.1, Eosinophils % 0.9, Basophils % 0.4, Absolute Granulocytes 5.8, Absolute Lymphocytes 1.5, Absolute Monocytes 0.7 H, Absolute Eosinophils 0.1, Absolute Basophils 0, PUBS MCHC 33.9 07/19/16 0143: Urine Color YEL, Urine Clarity CLEAR, Urine pH 6.5, Ur Specific [place] 1.015, Urine Protein NEG, Urine Ketones NEG, Urine Nitrite NEG, Urine Bilirubin NEG, Urine Urobilinogen 0.2, Ur Leukocyte Esterase NEG, Ur Microscopic EXAM NOT REQUIRED, Urine Hemoglobin NEG, Urine Glucose NEG 07/18/16 1536: Hemoglobin A1c Pending 07/18/16 1536: Anion Gap 15, Estimated GFR > 60, BUN/Creatinine Ratio 42.9 H, Glucose 159 H, Calcium 9.8, Magnesium 1.6, Total Bilirubin 0.8, AST 19, ALT 16, Alkaline Phosphatase 66, Troponin I < 0.01, Total Protein 7.8, Albumin 4.4, Globulin 3.4, Albumin/Globulin Ratio 1.3, CBC w Diff MAN DIFF ORDERED, RBC 4.33, MCV 89.1, MCH 30.0, RDW 13.3, MPV 7.9, Gran % 89.7 H, Lymphocytes % 6.6 L, Monocytes % 2.9, Eosinophils % 0.3, Basophils % 0.5, Absolute Granulocytes 18.5 H, Segmented Neutrophils 90 H, Band Neutrophils 1, Absolute Lymphocytes 1.4, Lymphocytes 6 L, Monocytes 2, Absolute Monocytes 0.6, Absolute Eosinophils 0.1, Basophils 1, Absolute Basophils 0.1, Platelet Estimate VERIFIED BY SMEAR, Normocytic RBCs VERIFIED, Normochromic RBCs VERIFIED, PUBS MCHC 33.7, Fld Total RBCs Counted 100 Microbiology 07/19 014 BLOOD: Blood Culture - RECD 07/19 120 BLOOD: Blood Culture - RECD Assessment/Plan Assessment: 65-year-old with 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 # Abdominal pain,nausea, vomiting, Most likely 2/2 viral gastroenteritis and constipation. CT abdomen showed moderate volume of stool in colon but no obstruction. Also there is an expected finding of a large heterogeneous low-attenuation mass arising out of the pelvis which is most likely her previous GIST given the history provided by the patient. * Symptomatic control with Antivert and Zofran as needed * Check BEP, replete electrolytes as needed * Cont Mag ox 400 daily # Vertigo Most likely 2/2 dehydration vs. BPPV in the setting of horizontal nystagmus. Patient received adequate IV hydration after which her vertigo has resolved. * Continue meclizine 25 mg TID PRN * Discontinue IVF as patient is now tolerating PO intake well # Leukocytosis Most likely reactive to gastroenteritis. Repeat CBC this morning shows a normal white count. * Follow BC X 2 - FGTD * Check CBC, trend WBC * Vitals per protocol, watch for signs of infection # History of GIST * Continue Gleevac 100mg PO BID * Oncology consulted, appreciate recs # Metabolic syndrome (obesity, HTN, HLD, pre-diabetes) * Accucehcks with Novolog SSI * Continue Atorvastatin 80 mg daily * Continue Nifedipine 30 mg qam * Holding home meds losartan 50mg PO daily and Lasix 20mg PO daily # Hypothyroidism * Continue levothyroxine 150 mcg # Continue home meds * Vit B12 * Mometasone * Albuterol # Home meds on hold * Lasix 20 mg daily * losartan 50mg PO daily * Irbesartan 150 mg daily * Triamterene 50 mg qam * Ca+D * Vit D3 Diet: Regular diet (patient informed about the need for diabetic diet but would like to control her own diet) DVT ppx: mech and pharm (lovenox) FULL CODE Problem List: 1. Abdominal pain 2. Vertigo 3. Leukocytosis 4. GIST, malignant 5. No pertinent family history Pain Ratin Pain Location: Diffuse abdomen Pain Goal: Remain pain free Pain Plan: Mild pain pathway Tomorrow's Labs & Rationales: CBC to monitor H/H in the setting of anemia
--- NOTE | 2016-07-19 09:14 | Cons- Oncology ---
General Information and HPI Consulting Request Date of Consult: 07/19/16 Requested By: MELISA SIFUENTES M.D Reason for Consult: GIST Source of Information: patient, old records Exam Limitations: no limitations History of Present Illness: Ms. 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 She states she was feeling well until yesterday afternoon when she started having right lower quadrant abdominal pain. She thought she was constipated but was not able to move her bowel. She started having nausea and vomiting. She had emesis for about 20 times. Afterward, she started having vertigo sensation with the room spinning around. This did not resolve after 20 minutes. EMS was called. She was seen in the ED at [facility]. She was started on IVF, given meclizine, and had CT scan done. CT demonstrated a pelvic mass of 25 cm. This morning, she is comfortable. Abdominal pain is improved. She has not gotten up to see if she still has the vertigo sensation. Of note, she sees Dr. Betzaida Estrada for her GIST management. She is currently getting imatinib 200 mg daily. This was dose reduced due to edema and gastritis. She has tolerated this better than prior. Allergies/Medications Allergies: Coded Allergies: NSAIDS (Non-Steroidal Anti-Inflamma (Severe, 07/19/16) Home Med List: Albuterol Sulfate (Proair Hfa) 90 MCG HFA.AER.AD 1 PUF INH Q4-6 PRN PRN ASTHMA (Reported) Cholecalciferol (Vitamin D3) (Vitamin D) 1,000 UNIT TABLET 1 TAB PO BID SUPPLEMENT (Reported) Cyanocobalamin (Vitamin B-12) 1,000 MCG TABLET 1 TAB PO DAILY SUPPLEMENT ( Reported) Furosemide (Lasix) 20 MG TABLET 1 TAB PO QAM BP (Reported) Imatinib Mesylate (Gleevec) 100 MG TABLET 1 TAB PO BID CHEMO (Reported) Irbesartan (Avapro) 150 MG TABLET 1 TAB PO DAILY BP (Reported) Levothyroxine Sodium (Synthroid) 150 MCG TABLET 1 TAB PO DAILY AC THYROID ( Reported) Mometasone Furoate (Asmanex) 220 MCG (14 DOSES) AER.POW.BA 1 PUFF INH BID ASTHMA (Reported) Multivitamin (Multi-Day Vitamins) 1 EACH TABLET 1 TAB PO DAILY SUPPLEMENT ( Reported) Nifedipine (Nifedical XL) 30 MG TAB.ER.24 1 TAB PO QAM BP (Reported) Rosuvastatin Calcium (Crestor) 20 MG TABLET 1 TAB PO DAILY CHOLESTEROL ( Reported) Triamterene (Dyrenium) 50 MG CAPSULE 1 CAP PO QAM BP (Reported) Current Medications: Current Medications Sig/Sophia Start time Last Medication Dose Route Stop Time Status Admin Acetaminophen 650 MG Q6P PRN 07/19 0115 AC PO Albuterol Sulfate 1 PUF Q4-6 PRN PRN 07/19 0415 AC INH Atorvastatin Calcium 80 MG 1700 07/19 1700 AC PO Cyanocobalamin 1,000 MCG DAILY 07/19 1000 AC PO Dextrose/Sodium 1,000 ML Q8H 07/19 0115 AC 07/19 Chloride IV 0144 Diazepam 0 .STK-MED ONE 07/18 1746 DC .ROUTE Diazepam 3 MG ONCE ONE 07/18 1730 DC 07/18 IV 07/18 1731 1756 Enoxaparin Sodium 40 MG DAILY 07/19 1000 AC SC Fluticasone 1 PUF BID 07/19 1000 AC Propionate INH Imatinib Mesylate 200 MG AT BEDTIME 07/19 2200 AC PO Levothyroxine Sodium 0.15 MG DAILY AC 07/19 0700 AC 07/19 PO 0505 Losartan Potassium 50 MG DAILY 07/19 1000 AC PO Magnesium Oxide 400 MG DAILY 07/19 0200 AC 07/19 PO 0505 Meclizine HCl 25 MG TIDPRN PRN 07/19 0215 AC PO Meclizine HCl 25 MG TIDPRN PRN 07/19 0115 DC PO Meclizine HCl 0 .STK-MED ONE 07/18 2347 DC PO Meclizine HCl 25 MG ONCE ONE 07/18 2315 DC 07/18 PO 07/18 2316 2353 Meclizine HCl 0 .STK-MED ONE 07/18 1542 DC PO Meclizine HCl 25 MG ONCE ONE 07/18 1530 DC 07/18 PO 07/18 1531 1549 Nifedipine 30 MG QAM 07/19 1000 AC PO Ondansetron HCl 4 MG Q8P PRN 07/19 0115 AC IV Ondansetron HCl 4 MG ONCE ONE 07/18 1600 DC 07/18 IV 07/18 1601 1549 Ondansetron HCl 0 .STK-MED ONE 07/18 1553 DC .ROUTE Potassium Chloride 40 MEQ ONCE ONE 07/19 0145 DC 07/19 PO 07/19 0146 0505 Sodium Chloride 1,000 ML BOLUS ONE 07/18 2315 DC 07/18 IV 07/19 0014 2353 Sodium Chloride 1,000 ML ONCE ONE 07/18 1530 DC 07/18 IV 07/18 2209 1549 Review of Systems Review of Systems Constitutional: Denies: chills, fever. EENTM: Denies: visual changes. Cardiovascular: Reports: edema. Denies: chest pain, palpitations. Respiratory: Denies: short of breath. GI: Reports: abdominal pain, constipation, nausea, vomiting. Denies: bloody stool. Genitourinary: Denies: dysuria, frequency, hematuria. Musculoskeletal: Denies: back pain, joint pain. Skin: Denies: rash. Neurological/Psychological: Reports: other (vertigo sensation). Denies: anxiety, confusion. Hematologic/Endocrine: Denies: bleeding. Immunologic/Allergic: Denies: lymphadenopathy. 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 Home Services at Home: None Smoking Status: Never Smoked ETOH Use: occasional use Illicit Drug Use: denies illicit drug use Functional Ability ADLs Independent: dressing, eating, toileting, bathing. Ambulation: independent IADLs Independent: shopping, housework, finances, food prep, telephone, transportation , medication admin. Exam & Diagnostic Data Vital Signs and I&O Vital Signs Date Time Temp Pulse Resp B/P Pulse O2 O2 Flow FiO2 Ox Delivery Rate 07/19 0638 98.1 70 20 116/72 97 Room Air 07/19 0243 98.0 72 20 120/70 97 Room Air 07/18 2211 98.2 74 16 128/60 98 Room Air 07/18 1935 97.8 75 16 112/68 96 Room Air 07/18 1742 96.3 72 18 119/60 99 Room Air 07/18 1632 Room Air 07/18 1529 97.7 75 18 102/64 99 Room Air Intake & Output 07/19 1600 07/19 0800 07/19 0000 Intake Total 625 1000 Output Total Balance 625 1000 Intake, IV 625 1000 Patient 76.204 kg Weight Physical Exam General Appearance: alert, awake, comfortable Head: atraumatic, normal appearance Ears, Nose, Throat: normal pharynx Neck: normal inspection, supple Respiratory: normal breath sounds, chest non-tender, no respiratory distress Cardiovascular: regular rate/rhythm Gastrointestinal: normal bowel sounds, soft, tenderness (mild d) Extremities: normal inspection Neurologic/Psych: awake, alert, oriented x 3 Lymphatic: no adenopathy Last 48 Hours of Lab Results: Laboratory Tests 07/19 07/19 0700 0143 Chemistry Sodium (137 - 145 mmol/L) 143 Potassium (3.5 - 5.1 mmol/L) 3.9 Chloride (98 - 107 mmol/L) 105 Carbon Dioxide (22 - 30 mmol/L) 28 Anion Gap (5 - 16) 10 BUN (7 - 17 mg/dL) 19 H Creatinine (0.5 - 1.0 mg/dL) 0.6 Estimated GFR (>60 ml/min) > 60 BUN/Creatinine Ratio (7 - 25 %) 31.7 H Magnesium (1.6 - 2.3 mg/dL) 1.7 TSH (0.270 - 4.200 uIU/mL) Pending Free T4 (0.78 - 2.44 ng/dL) Pending Hematology CBC w Diff NO MAN DIFF REQ WBC (4.8 - 10.8 /CUMM) 8.1 RBC (4.20 - 5.40 /CUMM) 3.28 L Hgb (12.0 - 16.0 G/DL) 9.8 L Hct (37 - 47 %) 29.1 L MCV (81.0 - 99.0 FL) 88.5 MCH (27.0 - 31.0 PG) 30.0 RDW (11.5 - 14.5 %) 13.5 Plt Count (130 - 400 /CUMM) 184 MPV (7.4 - 10.4 FL) 8.1 Gran % (42.2 - 75.2 %) 71.8 Lymphocytes % (20.5 - 51.1 %) 18.8 L Monocytes % (1.7 - 9.3 %) 8.1 Eosinophils % (0 - 5 %) 0.9 Basophils % (0.0 - 2.0 %) 0.4 Absolute Granulocytes (1.4 - 6.5 /CUMM) 5.8 Absolute Lymphocytes (1.2 - 3.4 /CUMM) 1.5 Absolute Monocytes (0.10 - 0.60 /CUMM) 0.7 H Absolute Eosinophils (0.0 - 0.7 /CUMM) 0.1 Absolute Basophils (0.0 - 0.2 /CUMM) 0 PUBS MCHC (33.0 - 37.0 G/DL) 33.9 Urines Urine Color (YEL,AMB,STR) YEL Urine Clarity (CLEAR) CLEAR Urine pH (5.0 - 8.0) 6.5 Ur Specific [place] (1.001 - 1.035) 1.015 Urine Protein (NEG,<30 MG/DL) NEG Urine Ketones (NEG) NEG Urine Nitrite (NEG) NEG Urine Bilirubin (NEG) NEG Urine Urobilinogen (0.1 - 1.0 EU/dl) 0.2 Ur Leukocyte Esterase (NEG) NEG Ur Microscopic EXAM NOT REQUIRED Urine Hemoglobin (NEG) NEG Urine Glucose (N MG/DL) NEG 07/18 07/18 1536 1536 Chemistry Sodium (137 - 145 mmol/L) 145 Potassium (3.5 - 5.1 mmol/L) 3.4 L Chloride (98 - 107 mmol/L) 102 Carbon Dioxide (22 - 30 mmol/L) 28 Anion Gap (5 - 16) 15 BUN (7 - 17 mg/dL) 30 H Creatinine (0.5 - 1.0 mg/dL) 0.7 Estimated GFR (>60 ml/min) > 60 BUN/Creatinine Ratio (7 - 25 %) 42.9 H Glucose (65 - 99 mg/dL) 159 H Hemoglobin A1c Pending Calcium (8.4 - 10.2 mg/dL) 9.8 Magnesium (1.6 - 2.3 mg/dL) 1.6 Total Bilirubin (0.2 - 1.3 mg/dL) 0.8 AST (14 - 36 U/L) 19 ALT (9 - 52 U/L) 16 Alkaline Phosphatase (<127 U/L) 66 Troponin I (< 0.11 ng/ml) < 0.01 Total Protein (6.3 - 8.2 g/dL) 7.8 Albumin (3.5 - 5.0 g/dL) 4.4 Globulin (1.9 - 4.2 gm/dL) 3.4 Albumin/Globulin Ratio (1.1 - 2.2 %) 1.3 Hematology CBC w Diff MAN DIFF ORDERED WBC (4.8 - 10.8 /CUMM) 20.6 H RBC (4.20 - 5.40 /CUMM) 4.33 Hgb (12.0 - 16.0 G/DL) 13.0 Hct (37 - 47 %) 38.6 MCV (81.0 - 99.0 FL) 89.1 MCH (27.0 - 31.0 PG) 30.0 RDW (11.5 - 14.5 %) 13.3 Plt Count (130 - 400 /CUMM) 259 MPV (7.4 - 10.4 FL) 7.9 Gran % (42.2 - 75.2 %) 89.7 H Lymphocytes % (20.5 - 51.1 %) 6.6 L Monocytes % (1.7 - 9.3 %) 2.9 Eosinophils % (0 - 5 %) 0.3 Basophils % (0.0 - 2.0 %) 0.5 Absolute Granulocytes (1.4 - 6.5 /CUMM) 18.5 H Segmented Neutrophils (42.2 - 75.2 %) 90 H Band Neutrophils (0.0 - 5.0 %) 1 Absolute Lymphocytes (1.2 - 3.4 /CUMM) 1.4 Lymphocytes (20.5 - 51.1 %) 6 L Monocytes (1.7 - 9.3 %) 2 Absolute Monocytes (0.10 - 0.60 /CUMM) 0.6 Absolute Eosinophils (0.0 - 0.7 /CUMM) 0.1 Basophils (0.0 - 2.0 %) 1 Absolute Basophils (0.0 - 0.2 /CUMM) 0.1 Platelet Estimate (ADEQUATE) VERIFIED BY SMEAR Normocytic RBCs VERIFIED Normochromic RBCs VERIFIED PUBS MCHC (33.0 - 37.0 G/DL) 33.7 Other Body Source Fld Total RBCs Counted (%) 100 Imaging/Other Studies: CT abdomen/pelvis 07/18/2016: 1. There is a large lobular mass again seen in the abdomen and pelvis. The mass is arising of the pelvis. Measures approximately 25 x 18 x 20 cm. The mass is solid with enhancing vessels in the mass. 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 The mass displaces bowel loops. Does not cause obstruction of the bowel loops. 2. Moderate volume of stool in colon. No bowel obstruction. 3. Small volume of abdominal ascites present. Assessment/Plan Assessment: Ms. 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 Presentation was acute and suggestive of potential gastroenteritis versus severe constipation. Imaging does not suggest any obstructive process. She does have moderate stool volume. Blood work demonstrated a leukocytosis. This is likely reactive. Vertigo is likely related to emesis episodes. Symptoms have mostly improved. She can continue on imatinib for her GIST. Symptoms are unlikely related to imatinib as she has been tolerating it relative well. Tumor is small as compared to imaging on in January 2016 (35cm). Recommendations: 1. Continue imatinib 200 mg PO daily 2. Follow up with Dr. Betzaida Estrada as scheduled on 07/25/2016 8AM 3. Ensure patient has disc with CT imaging for Dr. Estrada to review Problem List: 1. Leukocytosis 2. Abdominal pain Other Findings/Comments: Please call [phone] with any questions or concerns. Consult Acknowledgment - Thank you for your consult request.
[2016-07-19 14:18] VITALS: BP 118/60
[2016-07-19] MEDS ORDERED: ZOFRAN4 M2 PO (15:24)
[2016-07-19] MEDS ORDERED: MECLIZINE HCL25 MG PO (15:24)
[2016-07-19] MEDS ORDERED: MAGNESIUM OXID400 M1 PO (15:24)
[2016-07-19] MEDS ORDERED: SENNA PLUS TAB1 EACH PO (15:24)
--- NOTE | 2016-07-19 15:29 | Patient Discharge Instructions ---
Discharge Instructions General Discharge Information You were seen/treated for: Viral gastroenteritis Watch for these problems: Return to ED if you have worsening or persistent dizziness, lightheadedness, nause, vomiting, fever, chills, abdominal pain. Special Instructions: Please follow up with your primary care physician (Dr. Sr), vascular surgeon (Dr. Barnhart) and oncologist (Dr. Dawn) within 1 week of discharge. Diet Continue normal diet: Yes Activity Full Activity/No Limits: Yes Acute Coronary Syndrome Inclusion Criteria At DC or during hospital stay patient has or had the following: ACS DIAGNOSIS No Discharge Core Measures Meds if any: Prescribed or Continued at Discharge Meds if any: NOT Prescribed or Continued at Discharge Congestive Heart Failure Inclusion Criteria At DC or during hospital stay patient has or had the following: CHF DIAGNOSIS No Discharge Core Measures Meds if any: Prescribed or Continued at Discharge Meds if any: NOT Prescribed or Continued at Discharge Cerebrovascular accident Inclusion Criteria At DC or during hospital stay patient has or had the following: CVA/TIA Diagnosis No Discharge Core Measures Meds if any: Prescribed or Continued at Discharge Meds if any: NOT Prescribed or Continued at Discharge Venous thromboembolism Inclusion Criteria VTE Diagnosis No VTE Type NONE VTE Confirmed by (Test) NONE Discharge Core Measures - Per Current guidelines, there needs to be overlap - treatment for the first 5 days of Warfarin therapy. - If discharged on Warfarin prior to 5 days of - overlap therapy, the patient will need to be - assessed for post discharge needs including - *Post discharge parental anticoagulation - *Warfarin and/or parental anticoagulation education - *Follow up date to check INR post discharge At least 5 days overlap therapy as Inpatient No Meds if any: Prescribed or Continued at Discharge Note: Overlap Therapy is Warfarin and Anticoagulant Meds if any: NOT Prescribed or Continued at Discharge
[2016-07-19 17:30] LABS: ABSOLUTE BASOPHIL COUNT 0 /CUMM (0.0-0.2); ABSOLUTE EOSINOPHIL COUNT 0.4 /CUMM (0.0-0.7); ABSOLUTE GRANULOCYTE CT 4.1 /CUMM (1.4-6.5); ABSOLUTE LYMPH COUNT 1.8 /CUMM (1.2-3.4); ABSOLUTE MONOCYTE COUNT 0.6 /CUMM (0.10-0.60); BASOPHIL % 0.7 % (0.0-2.0); EOSINOPHIL % 5.3 % (0-5); HEMATOCRIT 30.8 % (37-47); MEAN CORPUSCULAR HGB 29.5 PG (27.0-31.0); MEAN CORPUSCULAR HGB CONC 33.2 G/DL (33.0-37.0); MEAN CORPUSCULAR VOLUME 88.8 FL (81.0-99.0); PLATELET COUNT 189 /CUMM (130-400); RBC DISTRIBUTION WIDTH 13.4 % (11.5-14.5); RED BLOOD CELL CT 3.46 /CUMM (4.20-5.40); WHITE BLOOD CELL COUNT 6.9 /CUMM (4.8-10.8)
[2016-07-19 21:57] VITALS: BP 112/72
--- NOTE | 2016-07-20 06:23 | PN- Housestaff ---
See Addendum Subjective Follow-up For: Vertigo Dehydration Nausea and vomiting Abdominal pain Subjective: Patient seen and examined at bedside. Patient reports feeling well, stbale from yesterday. Denies any nausea, vomiting, and vertigo, although she felt a little dizzy last night when she moved her head. Patient reports good PO intake with no issues. Abdominal tenderness is better at 2/10 this morning. She also had a bowel movement yest, Guaic negative. Review of Systems Constitutional: Reports: see HPI. Objective Last 24 Hrs of Vital Signs/I&O Vital Signs Date Time Temp Pulse Resp B/P Pulse O2 O2 Flow FiO2 Ox Delivery Rate 07/20 0630 97.9 61 18 126/70 96 Room Air 07/19 2157 98.1 77 20 112/72 97 Room Air 07/19 1418 98.1 82 20 118/60 96 Room Air 07/19 1101 Room Air 07/19 1031 80 120/78 Intake & Output 07/20 1600 07/20 0800 07/20 0000 Intake Total 300 500 Output Total Balance 300 500 Intake, Oral 300 500 Physical Exam General Appearance: Alert, Oriented X3, Cooperative, No Acute Distress Other Physical Findings: Skin No Significant Lesion HEENT Atraumatic, PERRLA, EOMI, Mucous Membr. moist/pink Neck Supple, +2 Carotid Pulse wo Bruit, No LAD Cardiovascular Regular Rate, Normal S1, Normal S2, No Murmurs, Gallops, Rubs Lungs Clear to Auscultation, Normal Air Movement Abdomen Normal Bowel Sounds, Soft, tender over left lower quadrant and right lower quadrant Neurological Normal Speech, horizontal nystagmus, more severe towards the left Extremities trace edema, has chronic venous insufficiency Vascular Normal Pulses Current Medications: Current Medications Sig/Sophia Start time Last Medication Dose Route Stop Time Status Admin Acetaminophen 650 MG Q6P PRN 07/19 0115 AC PO Albuterol Sulfate 1 PUF Q4-6 PRN PRN 07/19 0415 AC INH Atorvastatin Calcium 40 MG 07/19 2130 AC 07/19 PO 2258 Atorvastatin Calcium 80 MG 0 07/19 1700 DC PO Cyanocobalamin 1,000 MCG DAILY 07/19 1000 AC 07/19 PO 1444 Dextrose/Sodium 1,000 ML Q8H 07/19 0115 DC 07/19 Chloride IV 1038 Enoxaparin Sodium 40 MG DAILY 07/19 1000 AC SC Fluticasone 1 PUF BID 07/19 1000 AC Propionate INH Imatinib Mesylate 200 MG AT BEDTIME 07/19 2200 AC 07/19 PO 1753 Levothyroxine Sodium 0.15 MG DAILY AC 07/19 0700 AC 07/20 PO 0515 Losartan Potassium 50 MG DAILY 07/20 1000 AC PO Magnesium Oxide 400 MG DAILY 07/19 0200 AC 07/19 PO 1444 Meclizine HCl 25 MG TIDPRN PRN 07/19 0215 AC PO Nifedipine 30 MG QAM 07/19 1000 AC 07/19 PO 1031 Ondansetron HCl 4 MG Q8P PRN 07/19 0115 AC IV Senna/Docusate Sodium 1 TAB BID PRN 07/19 0845 AC 07/19 PO 1034 Last 24 Hrs of Lab/Osbaldo Results Last 24 Hrs of Labs/Mics: Laboratory Tests 07/20/16 0635: CBC w Diff NO MAN DIFF REQ, RBC 4.15 L, MCV 88.9, MCH 30.0, RDW 13.1, MPV 8.3, Gran % 60.3, Lymphocytes % 23.9, Monocytes % 6.2, Eosinophils % 8.8 H, Basophils % 0.8, Absolute Granulocytes 4.0, Absolute Lymphocytes 1.6, Absolute Monocytes 0.4, Absolute Eosinophils 0.6, Absolute Basophils 0.1, PUBS MCHC 33.7 07/19/16 1655: CBC w Diff NO MAN DIFF REQ, RBC 3.46 L, MCV 88.8, MCH 29.5, RDW 13.4, MPV 8.0, Gran % 60.0, Lymphocytes % 25.9, Monocytes % 8.1, Eosinophils % 5.3 H, Basophils % 0.7, Absolute Granulocytes 4.1, Absolute Lymphocytes 1.8, Absolute Monocytes 0.6, Absolute Eosinophils 0.4, Absolute Basophils 0, PUBS MCHC 33.2 Assessment/Plan Assessment: 65-year-old with 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 # Abdominal pain,nausea, vomiting, Most likely 2/2 viral gastroenteritis and constipation. CT abdomen showed moderate volume of stool in colon but no obstruction. Also there is an expected finding of a large heterogeneous low-attenuation mass arising out of the pelvis which is most likely her previous GIST given the history provided by the patient. * Symptomatic control with Antivert and Zofran as needed * Check BEP, replete electrolytes as needed * Cont Mag ox 400 daily # Vertigo Most likely 2/2 dehydration vs. BPPV in the setting of horizontal nystagmus. Patient received adequate IV hydration after which her vertigo has resolved. * Continue meclizine 25 mg TID PRN * Check orthostatic BP and if its okay, discharge to home # Leukocytosis - resolved Most likely reactive to gastroenteritis. Repeat CBC this morning shows a normal white count. * Follow BC X 2 - NGTD * Check CBC, trend WBC * Vitals per protocol, watch for signs of infection # History of GIST * Continue Gleevac 100mg PO BID * Oncology consulted, appreciate recs # Metabolic syndrome (obesity, HTN, HLD, pre-diabetes) * Accucehcks with Novolog SSI * Continue Atorvastatin 80 mg daily * Continue Nifedipine 30 mg qam * Holding home meds losartan 50mg PO daily and Lasix 20mg PO daily # Hypothyroidism * Continue levothyroxine 150 mcg # Continue home meds * Vit B12 * Mometasone * Albuterol # Home meds on hold * Lasix 20 mg daily * losartan 50mg PO daily * Irbesartan 150 mg daily * Triamterene 50 mg qam * Ca+D * Vit D3 Diet: Regular diet (patient informed about the need for diabetic diet but would like to control her own diet) DVT ppx: mech and pharm (lovenox) FULL CODE Problem List: 1. Abdominal pain 2. Vertigo 3. Leukocytosis 4. GIST, malignant 5. No pertinent family history Pain Ratin Pain Location: Abdomen Pain Goal: Remain pain free Pain Plan: Mild pathway Tomorrow's Labs & Rationales: None
[2016-07-20 06:30] VITALS: BP 126/70
[2016-07-20 08:10] LABS: ABSOLUTE BASOPHIL COUNT 0.1 /CUMM (0.0-0.2); ABSOLUTE EOSINOPHIL COUNT 0.6 /CUMM (0.0-0.7); ABSOLUTE LYMPH COUNT 1.6 /CUMM (1.2-3.4); ABSOLUTE MONOCYTE COUNT 0.4 /CUMM (0.10-0.60); MEAN PLATELET VOLUME 8.3 FL (7.4-10.4); RED BLOOD CELL CT 4.15 /CUMM (4.20-5.40)
--- NOTE | 2016-07-20 08:38 | PN- Oncology ---
Subjective Subjective: Pain is improved. Residual pain still in the right lower. She still has some lightheaded sensation especially with rapid movement. Review of Systems Constitutional: Denies: fever, weakness. Cardiovascular: Denies: chest pain. Respiratory: Denies: short of breath. Gastrointestinal: Reports: abdominal pain. Denies: constipation. Neurological/Psychological: Reports: other (lightheadedness). All Other Systems: Reviewed and Negative Objective Vital Signs and I&Os Vital Signs Date Time Temp Pulse Resp B/P Pulse O2 O2 Flow FiO2 Ox Delivery Rate 07/20 0630 97.9 61 18 126/70 96 Room Air 07/19 2157 98.1 77 20 112/72 97 Room Air 07/19 1418 98.1 82 20 118/60 96 Room Air 07/19 1101 Room Air 07/19 1031 80 120/78 Intake & Output 07/20 1600 07/20 0800 07/20 0000 07/19 1600 07/19 0800 07/19 0000 Intake Total 300 500 528 044 2194 Output Total Balance 300 500 215 525 8203 Intake, IV 625 1000 Intake, Oral 300 500 800 Number 1 Bowel Movements Patient 76.204 kg Weight Physical Exam: General Appearance: alert, awake, comfortable Head: atraumatic, normal appearance Ears, Nose, Throat: normal pharynx Neck: normal inspection, supple Respiratory: normal breath sounds, chest non-tender, no respiratory distress Cardiovascular: regular rate/rhythm Gastrointestinal: normal bowel sounds, soft, tenderness (mild in RLQ), palpable mass Extremities: normal inspection Neurologic/Psych: awake, alert, oriented x 3 Lymphatic: no adenopathy Current Medications: Current Medications Sig/Sophia Start time Last Medication Dose Route Stop Time Status Admin Acetaminophen 650 MG Q6P PRN 07/19 0115 AC PO Albuterol Sulfate 1 PUF Q4-6 PRN PRN 07/19 0415 AC INH Atorvastatin Calcium 40 MG 1700 07/19 2130 AC 07/19 PO 2258 Atorvastatin Calcium 80 MG 1700 07/19 1700 DC PO Cyanocobalamin 1,000 MCG DAILY 07/19 1000 AC 07/19 PO 1444 Dextrose/Sodium 1,000 ML Q8H 07/19 0115 DC 07/19 Chloride IV 1038 Enoxaparin Sodium 40 MG DAILY 07/19 1000 AC SC Fluticasone 1 PUF BID 07/19 1000 AC Propionate INH Imatinib Mesylate 200 MG AT BEDTIME 07/19 2200 AC 07/19 PO 1753 Levothyroxine Sodium 0.15 MG DAILY AC 07/19 0700 AC 07/20 PO 0515 Losartan Potassium 50 MG DAILY 07/20 1000 AC PO Losartan Potassium 50 MG DAILY 07/19 1000 CAN PO Magnesium Oxide 400 MG DAILY 07/19 0200 AC 07/19 PO 1444 Meclizine HCl 25 MG TIDPRN PRN 07/19 0215 AC PO Nifedipine 30 MG QAM 07/19 1000 AC 07/19 PO 1031 Ondansetron HCl 4 MG Q8P PRN 07/19 0115 AC IV Senna/Docusate Sodium 1 TAB BID PRN 07/19 0845 AC 07/19 PO 1034 Results Last 24 Hours of Lab Results: Laboratory Tests 07/20 07/19 0635 1655 Hematology CBC w Diff Pending NO MAN DIFF REQ WBC (4.8 - 10.8 /CUMM) Pending 6.9 RBC (4.20 - 5.40 /CUMM) Pending 3.46 L Hgb (12.0 - 16.0 G/DL) Pending 10.2 L Hct (37 - 47 %) Pending 30.8 L MCV (81.0 - 99.0 FL) Pending 88.8 MCH (27.0 - 31.0 PG) Pending 29.5 RDW (11.5 - 14.5 %) Pending 13.4 Plt Count (130 - 400 /CUMM) Pending 189 MPV (7.4 - 10.4 FL) Pending 8.0 Gran % (42.2 - 75.2 %) 60.0 Lymphocytes % (20.5 - 51.1 %) 25.9 Monocytes % (1.7 - 9.3 %) 8.1 Eosinophils % (0 - 5 %) 5.3 H Basophils % (0.0 - 2.0 %) 0.7 Absolute Granulocytes (1.4 - 6.5 /CUMM) 4.1 Absolute Lymphocytes (1.2 - 3.4 /CUMM) 1.8 Absolute Monocytes (0.10 - 0.60 /CUMM) 0.6 Absolute Eosinophils (0.0 - 0.7 /CUMM) 0.4 Absolute Basophils (0.0 - 0.2 /CUMM) 0 PUBS MCHC (33.0 - 37.0 G/DL) Pending 33.2 Assessment/Plan Assessment/Recommendations: Ms. 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 Presentation was acute and suggestive of potential gastroenteritis versus severe constipation. Imaging does not suggest any obstructive process. She does have moderate stool volume. Blood work demonstrated a leukocytosis. This is likely reactive. Vertigo is likely related to emesis episodes. Symptoms have mostly improved. WBC has improved. Anemia and decrease in platelet is likely dilution effect. She is continued on imatinib which seems to be helping with her GIST. Symptoms unlikely related to her imatinib. Recommendations: 1. Continue imatinib 200 mg PO daily 2. Follow up with Dr. Betzaida Estrada as scheduled on 07/25/2016 8AM 3. Please ensure patient has disc with CT imaging for Dr. Estrada to review Please call [phone] with any questions or concerns. Problem List: 1. GIST, malignant 2. Leukocytosis 3. Vertigo 4. Abdominal pain
[2016-07-20 08:50] LABS: BASOPHIL % 0.8 % (0.0-2.0); EOSINOPHIL % 8.8 % (0-5); GRANULOCYTE % 60.3 % (42.2-75.2); MEAN CORPUSCULAR HGB CONC 33.7 G/DL (33.0-37.0); MEAN CORPUSCULAR VOLUME 88.9 FL (81.0-99.0); PLATELET COUNT 228 /CUMM (130-400); RBC DISTRIBUTION WIDTH 13.1 % (11.5-14.5); WHITE BLOOD CELL COUNT 6.6 /CUMM (4.8-10.8)
[2016-07-20 08:57] LABS: HEMATOCRIT 36.9 % (37-47)
[2016-07-20 11:25] VITALS: BP 120/78
--- NOTE | 2016-07-21 18:32 | Discharge Summary ---
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 # Abdominal pain,nausea, vomiting, Most likely 2/2 viral gastroenteritis with a component of constipation. CT abdomen showed moderate volume of stool in colon but no obstruction. Also there was an expected finding of a large heterogeneous low-attenuation mass arising out of the pelvis which was consistent with her history of GIST. Patient's symptoms were well controlled with IV hydration, Antivert and Zofran. Patient's electrolytes were checked daily and repleted as needed. # Vertigo Most likely 2/2 dehydration vs. BPPV in the setting of horizontal nystagmus. Patient received adequate IV hydration after which her vertigo has resolved. BPPV was considered unlikely given the negative Hallpike manuever. Orthostatic BP was also tested and negative. Patient was provided with meclizine 25 mg PRN to take for recurrent vertigo at home. # Leukocytosis - resolved On admission patient came in with a white count of 20.6, most likely reactive to gastroenteritis. Repeat CBC the next morning showed a normal white count. Blood cultures were all negative and patient remained afebrile with no signs of SIRS. # History of GIST CT abdomen with and w/o contrast was done and showed a large heterogeneous low- attenuation mass arising out of the pelvis measuring 25 x 18 x 20 cm. We continued Gleevac 100mg PO BID. Oncology was consulted amd no interventions were recommended. Patient was recommended to follow up with her outpatient oncologist upon discharge. # Metabolic syndrome (obesity, HTN, HLD, pre-diabetes) Patient was kept on accucehcks with Novolog SSI, Atorvastatin 80 mg daily and nifedipine 30 mg qam. Her home meds losartan 50mg PO daily and Lasix 20mg PO daily were held in the setting of hypovolemic status with which patient presented on admission. # Hypothyroidism Patient was kept on levothyroxine 150 mcg Allergies: Coded Allergies: NSAIDS (Non-Steroidal Anti-Inflamma (Severe, 07/19/16) Disposition Summary Disposition Principal Diagnosis: Viral gastroenteritis Additional Diagnosis: Hypokalemia Discharge Disposition: home or self care Discharge Instructions General Discharge Information Code Status: Full Code Patient's Diet: Regular Patient's Activity: Full Follow-Up Instructions/Appts: Please follow up with your primary care physician (Dr. Sr), vascular surgeon (Dr. Barnhart) and oncologist (Dr. Dawn) within 1 week of discharge. Medications at Discharge Discharge Medications: Stop taking the following medications: Furosemide (Lasix) 20 MG TABLET ORAL Every Morning Continue taking these medications: Rosuvastatin Calcium (Crestor) 20 MG TABLET 1 Tablet ORAL DAILY Comments: Last Taken: 07/19/16 Time: 2200 Imatinib Mesylate (Gleevec) 100 MG TABLET 1 Tablet ORAL TWICE DAILY Comments: Last Taken: 07/19/16 Time: 1800 Mometasone Furoate (Asmanex) 220 MCG (14 DOSES) AER.POW.BA 1 PUFF Inhale through mouth TWICE DAILY Comments: NOT TAKEN IN HOSPITAL Albuterol Sulfate (Proair Hfa) 90 MCG HFA.AER.AD 1 Puff Inhale through mouth EVERY 4-6 HOURS NEEDED as needed for ASTHMA Comments: NOT TAKEN IN HOSPITAL Levothyroxine Sodium (Synthroid) 150 MCG TABLET 1 Tablet ORAL DAILY BEFORE BREAKFAST Comments: Last Taken: 07/20/16 Time: 0630 Nifedipine (Nifedical XL) 30 MG TAB.ER.24 1 Tablet ORAL Every Morning Comments: Last Taken: 07/20/16 Time: 0930 Irbesartan (Avapro) 150 MG TABLET 1 Tablet ORAL DAILY Comments: PER PT MED LIST Triamterene (Dyrenium) 50 MG CAPSULE 1 Capsule ORAL Every Morning Comments: NOT GIVEN IN HOSPITAL Multivitamin (Multi-Day Vitamins) 1 EACH TABLET 1 Tablet ORAL DAILY Comments: NOT TAKEN IN HOSPITAL Cholecalciferol (Vitamin D3) (Vitamin D) 1,000 UNIT TABLET 1 Tablet ORAL TWICE DAILY Comments: NOT TAKEN IN HOSPITAL Cyanocobalamin (Vitamin B-12) 1,000 MCG TABLET 1 Tablet ORAL DAILY Comments: Last Taken: 07/20/16 Time: 0930 Start taking the following new medications: Sennosides/Docusate Sodium (Senna Plus Tablet) 8.6 MG-50 MG TABLET 1 Tablet ORAL TWICE DAILY as needed for CONSTIPATION Days = 30 No Refills Meclizine HCl (Meclizine HCl) 25 MG TABLET 25 Milligram ORAL THREE TIMES A DAY NEEDED as needed for DIZZINESS Days = 10 No Refills Ondansetron HCl (Zofran) 4 MG TABLET 1 Tablet ORAL Every 6-8 Hours as Needed Qty = 15 No Refills Copies To: AMANUEL VALENTINE,JOVAN Baig; FRANCISCO VALENTINE,JESS Carroll; KOKO VALENTINE,BERTIN De Jesus Attending MD Review Statement Documenting Attending: MELISA SIFUENTES M.D Other Findings: I have reviewed the discharge summary
== END 2016-07-20 15:45 | DRG 392 ==
LOC: ENRESERVDT → ENRESERVTM → ERH 14:42 → ERHI 17:51 → ENPENDDIS 23:15 → 2NA 23:15 → EDBEDREQ 07-19 01:04 → EDBEDREQSVC 07-19 01:04 → 2NA 07-19 02:19
PROVIDERS: Internal Medicine Hematology & Oncology; Physician Assistant Medical; ADMIT Student in an Organized Health Care Education/Training Program
DX: A08.4 Viral intestinal infection, unspecified (principal); E88.81 Metabolic syndrome and other insulin resistance; C49.A0 Gastrointestinal stromal tumor, unspecified site; R42 Dizziness and giddiness; E87.6 Hypokalemia; E86.0 Dehydration; E03.9 Hypothyroidism, unspecified
CPT/HCPCS: 2NAP; ERO; 74176; 74177; 81003; 82436; 87040; 93005; 93010; 96374; 97112-GO; 97116-GO; 97161-GP; J1650; J2405; J3360; J3490; J7042